=== PATIENT | female | born 1995 | race Caucasian/White ===

== ENCOUNTER 2018-07-09 15:59 | Emergency (ER) | payer SELFPAY ==
--- NOTE | 2018-07-09 17:17 | ER Document Report ---
ED Medical Screen (RME) - General Chief Complaint: Cough Stated Complaint: CONGESTED, HEADACHE, SIDE PAIN Time Seen by Provider: 07/09/18 17:15 Mode of Arrival: Ambulatory Information source: Patient TRAVEL OUTSIDE OF THE [place] IN LAST 30 DAYS: No - HPI Patient complains to provider of: cough, congestion, Onset: Last week - pt with 1 week h/o cough, congestion. Also redness around umbilicus for the past 2 days. - Related Data Allergies/Adverse Reactions: No Known Allergies Allergy (Unverified 07/09/18 16:07) Past Medical History - Social History Drug Abuse: None Renal/ Medical History: Denies: Hx Peritoneal Dialysis Physical Exam - Vital signs Vitals: Temp Pulse Resp BP Pulse Ox 98.4 F 78 16 127/80 H 98 07/09/18 16:17 07/09/18 16:17 07/09/18 16:17 07/09/18 16:17 07/09/18 16:17 Course - Vital Signs Vital signs: Temp Pulse Resp BP Pulse Ox 98.4 F 78 16 127/80 H 98 07/09/18 16:17 07/09/18 16:17 07/09/18 16:17 07/09/18 16:17 07/09/18 16:17
[2018-07-09 18:09] LABS: ABSOLUTE EOSINOPHILS # (AUTO) 0.1 10^3/uL (0.0-0.6); ABSOLUTE LYMPHOCYTES (AUTO) 1.3 10^3/uL (0.5-4.7); ABSOLUTE MONOCYTES (AUTO) 0.7 10^3/uL (0.1-1.4); ABSOLUTE NEUT (AUTO) 4.9 10^3/uL (1.7-8.2); BASOPHILS % (AUTO) 0.6 % (0-2); EOSINOPHILS % (AUTO) 1.1 % (0-6); HEMATOCRIT 42.9 % (36.0-47.0); HEMOGLOBIN 15.1 g/dL (12.0-15.5); LYMPHOCYTES % (AUTO) 18.8 % (13-45); MEAN CORPUSCULAR HEMOGLOBIN 30.6 pg (27.0-33.4); MEAN CORPUSCULAR HGB CONC 35.3 g/dL (32.0-36.0); MEAN CORPUSCULAR VOLUME 87 fl (80-97); MONOCYTES % (AUTO) 9.4 % (3-13); PLATELET COUNT 195 10^3/uL (150-450); RED BLOOD COUNT 4.95 10^6/uL (3.72-5.28); RED CELL DISTRIBUTION WIDTH 13.8 % (11.5-14.0); SEGMENTED NEUTROPHILS % (AUTO) 70.1 % (42-78); TOTAL CELLS COUNTED % (AUTO) 100 %
[2018-07-09 18:14] LABS: APPEARANCE,URINE SLIGHTLY-CLOUDY; BILIRUBIN,URINE NEGATIVE (NEGATIVE); COLOR,URINE YELLOW; GLUCOSE, URINE NEGATIVE (NEGATIVE); KETONES,URINE NEGATIVE (NEGATIVE); LEUKOCYTE ESTERASE,URINE NEGATIVE (NEGATIVE); NITRITE,URINE NEGATIVE (NEGATIVE); PROTEIN,URINE NEGATIVE (NEGATIVE); URINE SPECIFIC GRAVITY 1.019; UROBILINOGEN,URINE NEGATIVE mg/dL (<2.0)
[2018-07-09 18:27] LABS: ALANINE AMINOTRANSFERASE 28 U/L (9-52); ALBUMIN 4.6 g/dL (3.5-5.0); ALKALINE PHOSPHATASE 107 U/L (38-126); ANION GAP 12 (5-19); ASPARTATE AMINO TRANSFERASE 24 U/L (14-36); BILIRUBIN,DIRECT 0.1 mg/dL (0.0-0.4); BILIRUBIN,TOTAL 0.6 mg/dL (0.2-1.3); BLOOD UREA NITROGEN 9 mg/dL (7-20); CALCIUM 9.9 mg/dL (8.4-10.2); CARBON DIOXIDE 24 mmol/L (22-30); CHLORIDE 102 mmol/L (98-107); GLUCOSE 88 mg/dL (75-110); POTASSIUM 4.2 mmol/L (3.6-5.0); SODIUM 138.1 mmol/L (137-145); TOTAL PROTEIN 7.4 g/dL (6.3-8.2)
--- NOTE | 2018-07-09 18:39 | RADIOLOGY REPORT (SQ) ---
EXAM DESCRIPTION: CHEST 2 VIEWS COMPLETED DATE/TIME: 07/09/2018 5:40 pm REASON FOR STUDY: cough COMPARISON: None. EXAM PARAMETERS: NUMBER OF VIEWS: two views TECHNIQUE: Digital Frontal and Lateral radiographic views of the chest acquired. RADIATION DOSE: NA LIMITATIONS: none FINDINGS: LUNGS AND PLEURA: No acute infiltrates or effusions. MEDIASTINUM AND HILAR STRUCTURES: No masses or contour abnormalities. HEART AND VASCULAR STRUCTURES: Normal heart and pulmonary vasculature. BONES: No acute findings. HARDWARE: None in the chest. OTHER: No other significant finding. IMPRESSION: NO ACUTE DISEASE. TECHNICAL DOCUMENTATION: JOB ID: [id number] [employer]- All Rights Reserved Reading location - IP/workstation name: [email or web address]
--- NOTE | 2018-07-09 19:31 | ER Document Report ---
ED General - General Chief Complaint: Cough Stated Complaint: CONGESTED, HEADACHE, SIDE PAIN Time Seen by Provider: 07/09/18 17:15 Mode of Arrival: Ambulatory Notes: Patient is a 23-year-old female without chronic medical problems who presents with 2-3 days of sinus congestion, ear pain, cough, postnasal drip. Patient also reports that she has had erythema around her umbilicus for the past 1 week. Primary reason for visiting is the URI type symptoms. Patient states that the symptoms started abruptly, have been relatively unchanged since onset. Has tried xmue-niu-gvjditf remedies without relief. Nothing seems to worsen her symptoms. States that she gets these symptoms 3-4 times yearly, often diagnosis viral infections and she is worried that this will turn into a pneumonia. She has not had fever. She denies vomiting or diarrhea. No headache or neck pain. Has not seen her primary care physician regarding today's concerns. TRAVEL OUTSIDE OF THE [place] IN LAST 30 DAYS: No - Related Data Allergies/Adverse Reactions: No Known Allergies Allergy (Unverified 07/09/18 16:07) Past Medical History - General Information source: Patient - Social History Smoking Status: Never Smoker Frequency of alcohol use: None Drug Abuse: None Lives with: Family Family History: Reviewed & Not Pertinent Patient has suicidal ideation: No Patient has homicidal ideation: No Renal/ Medical History: Denies: Hx Peritoneal Dialysis Review of Systems - Review of Systems Notes: Constitutional: Negative for fever. HENT: Positive for sore throat, sinus pressure, ear pain. Eyes: Negative for visual changes. Cardiovascular: Negative for chest pain. Respiratory: Negative for shortness of breath. Positive for cough Gastrointestinal: Negative for abdominal pain, vomiting or diarrhea. Genitourinary: Negative for dysuria. Musculoskeletal: Negative for back pain. Skin: Positive for rash. Neurological: Negative for headaches, weakness or numbness. 10 point ROS negative except as marked above and in HPI. Physical Exam - Vital signs Vitals: Temp Pulse Resp BP Pulse Ox 98.4 F 78 16 127/80 H 98 07/09/18 16:17 07/09/18 16:17 07/09/18 16:17 07/09/18 16:17 07/09/18 16:17 Interpretation: Normal Notes: PHYSICAL EXAMINATION: GENERAL: Well-appearing, well-nourished and in no acute distress. HEAD: Atraumatic, normocephalic. EYES: Pupils equal round and reactive to light, extraocular movements intact, sclera anicteric, conjunctiva are normal. ENT: nares patent, oropharynx clear without exudates. Moist mucous membranes. NECK: Normal range of motion, supple without lymphadenopathy LUNGS: Breath sounds clear to auscultation bilaterally and equal. No wheezes rales or rhonchi. HEART: Regular rate and rhythm without murmurs ABDOMEN: Soft, nontender, normoactive bowel sounds. No guarding, no rebound. No masses appreciated. EXTREMITIES: Normal range of motion, no pitting or edema. No cyanosis. NEUROLOGICAL: No focal neurological deficits. Moves all extremities spontaneously and on command. PSYCH: Normal mood, normal affect. SKIN: Warm, Dry, normal turgor, there is diffuse erythema around the umbilicus and into the umbilicus itself Course - Re-evaluation Re-evalutation: 07/09/18 19:29 Presentation is most consistent with a viral upper respiratory infection. Patient is overall well appearance, vitals within normal limits, well-hydrated. Patient denies any headache, neck pain, and has no evidence of meningismus on examination. Lungs are clear bilaterally. No evidence of respiratory distress. Based on clinical exam and history, I do not suspect an acute pneumonia, meningitis, strep pharyngitis, or an acute encephalitis. In triage an extensive evaluation was done including laboratories and chest x-ray all of which is unremarkable. The patient did also complain of some erythema around the umbilicus, this appears to be a candidal infection and I have advised her to start nystatin. At this time will discharge with return precautions and follow- up recommendations. Verbal discharge instructions given a the bedside and opportunity for questions given. Medication warnings reviewed. Patient is in agreement with this plan and has verbalized understanding of return precautions and the need for primary care follow-up in the next 24-72 hours. - Vital Signs Vital signs: Temp Pulse Resp BP Pulse Ox 98.1 F 70 16 128/70 H 95 07/09/18 19:41 07/09/18 19:41 07/09/18 19:41 07/09/18 19:41 07/09/18 19:41 - Laboratory Result Diagrams: 07/09/18 17:56 07/09/18 17:56 - Diagnostic Test Radiology reviewed: Image reviewed, Reports reviewed Radiology results interpreted by me: 07/10/18 02:37 Chest x-ray: No acute infiltrate or pneumothorax Discharge - Discharge Clinical Impression: Viral upper respiratory infection, Cellulitis of umbilicus Condition: Good Disposition: HOME, SELF-CARE Additional Instructions: Your symptoms are most likely due to a viral infection it should resolve over the next 7-14 days. You should take zhku-obe-pdttant guanfacine per bottle instructions to help thin the mucus. For nasal congestion: I would recommend memo t you get sjfo-ydt-vftcntg oxymetazoline also known is afrin. Use only per bottle instructions and be sure to never use this for more than 3 days if you can develop severe rebound congestion. You may also use tylenol or ibuprofen as needed for aches and throat discomfort. Please be sure to drink plenty of fluids and get rest. Return to the emergency department he began having difficulty breathing, chest pain, persistent vomiting, or any other symptoms that are concerning to you. Apply nystatin powder to the umbilical region 3 times daily until the rash is resolved. Prescriptions: Nystatin 1 each MC TID 14 Days powder.ea. Forms: Return to Work
[2018-07-09 19:54] VITALS: BP 128/70
== END 2018-07-09 19:58 | disposition home or self-care (01) ==
LOC: ER 15:59
DX: J06.9 Acute upper respiratory infection, unspecified (principal); B97.89 Other viral agents as the cause of diseases classified elsewhere; L03.316 Cellulitis of umbilicus; R05 Cough; R09.81 Nasal congestion; R51 Headache; H92.09 Otalgia, unspecified ear; R09.82 Postnasal drip; R21 Rash and other nonspecific skin eruption
CPT/HCPCS: 36415; 71046; 80053; 81001; 81025; 85025; 99283

== ENCOUNTER 2018-07-12 17:31 | Emergency (ER) | payer SELFPAY ==
[2018-07-12] MEDS ORDERED: IPRATROPIUM/ALBUTEROL 0.5-2.5 MG/3 ML AMPUL NEB ONE (19:09)
[2018-07-12] MEDS ORDERED: ONDANSETRON 4 MG TAB.RAPDIS PO ONE (19:11)
--- NOTE | 2018-07-12 19:16 | ER Document Report ---
HPI - HPI Patient complains to provider of: cough, nausea Time Seen by Provider: 07/12/18 18:49 Onset: Other - last tuesday Quality of pain: Achy Severity: Severe Pain Level: 4 Context: Patient presents emergency department very tearful crying reports that she feels awful coughing coughing to the point where she is vomiting after the cough. Reports she has pain with deep breath. Patient was evaluated here a few days ago for same symptoms and reports she is worsening. Has been taking the Tessalon Perles without relief of symptoms. Denies diarrhea. Feels hot and cold. Patient reports that she has had bronchitis for times and pneumonia 3 times. Moved here from [place] couple months ago. No recent travel. Associated Symptoms: Nonproductive cough Exacerbated by: Deep breathing Relieved by: Denies Similar symptoms previously: Yes Recently seen / treated by doctor: Yes - CONSTITUTIONAL Constitutional: REPORTS: Chills. DENIES: Fever - EENT EENT: REPORTS: Sore Throat. DENIES: Ear Pain, Eye problems - NEURO Neurology: DENIES: Headache, Weakness, Vision blurred, Dizzinesss / Vertigo - CARDIOVASCULAR Cardiovascular: DENIES: Chest pain - RESPIRATORY Respiratory: REPORTS: Trouble Breathing, Coughing - GASTROINTESTINAL Gastrointestinal: DENIES: Abdominal Pain, Black / Bloody Stools - URINARY Urinary: DENIES: Dysuria, Urgency, Frequency - REPRODUCTIVE Reproductive: DENIES: : - MUSCULOSKELETAL Musculoskeletal: DENIES: Extremity pain Past Medical History - General Information source: Patient Last Menstrual Period: jan 2018 - Social History Smoking Status: Unknown if Ever Smoked Cigarette use (# per day): No Chew tobacco use (# tins/day): No Frequency of alcohol use: Occasional Drug Abuse: None Occupation: [employer] Family History: Reviewed & Not Pertinent Patient has suicidal ideation: No Patient has homicidal ideation: No Pulmonary Medical History: Reports: Hx Bronchitis, Hx Pneumonia Renal/ Medical History: Denies: Hx Peritoneal Dialysis Past Surgical History: Reports: Hx Orthopedic Surgery - acl reconstruction Vertical Provider Document - CONSTITUTIONAL Agree With Documented VS: Yes Exam Limitations: No Limitations General Appearance: WD/WN, No Apparent Distress - very emotional crying - INFECTION CONTROL TRAVEL OUTSIDE OF THE [place] IN LAST 30 DAYS: No - HEENT HEENT: Atraumatic, Normocephalic, Pharyngeal Erythema. negative: Conjuctival Injection, Pharyngeal Exudate, Pharyngeal Tenderness, Tympanic Membrane Red, Tympanic Membrane Bulging - NECK Neck: Normal Inspection - RESPIRATORY Respiratory: Breath Sounds Normal, No Respiratory Distress, Chest Non-Tender. negative: Rales, Rhonchi, Wheezing - CARDIOVASCULAR Cardiovascular: Regular Rhythm, Tachycardia - GI/ABDOMEN Gastrointestinal: Abdomen Soft, Abdomen Non-Tender - BACK Back: Normal Inspection - MUSCULOSKELETAL/EXTREMETIES Musculoskeletal/Extremeties: MAEW, FROM - NEURO Level of Consciousness: Awake, Alert, Appropriate Motor/Sensory: No Motor Deficit - DERM Integumentary: Warm, Dry Course - Re-evaluation Re-evalutation: 07/12/18 19:13 Patient is very dramatic. Crying very emotional wanting to know why she is so sick. Reviewed medical record from Tuesday. Lab work was negative chest x-ray is negative. CT Chest neb treatment ordered 07/12/18 20:34 CT negative vital signs within normal limits. Patient resting quietly no distress no audible coughing. She was instructed on the CT instructed on the importance of follow-up with a primary care provider we discussed bronchitis we discussed cough. Patient seemed comfortable with plan of care. Dictation of this chart was performed using voice recognition software; therefore, there may be some unintended grammatical errors. - Vital Signs Vital signs: Temp Pulse Resp BP Pulse Ox 99.8 F 106 H 20 82/67 L 99 07/12/18 19:01 07/12/18 19:01 07/12/18 19:01 07/12/18 19:01 07/12/18 19:01 - Diagnostic Test Radiology reviewed: Image reviewed, Reports reviewed - EXAM DESCRIPTION: CT CHEST WITHOUT IV CONTRAST COMPLETED DATE/TME: 07/12/2018 19:03 CLINICAL HISTORY: 23 years, Female, cough worsening, difficulty breathing. This exam was performed according to our departmental dose-optimization program which i ncludes automated exposure control, adjustment of the mA and/or kVp according to patient size and/or use of iterative reconstruction technique where applicable. Findings: Aorta and pulmonary arteries are within normal limits for noncontrast imaging. No aneurysm. No significant mediastinal, hilar or axillary lymphadenopathy. Small pericardial effusion. No significant pleural effusions. The visualized upper abdominal organs are within normal limits. Evaluation of the lung parenchyma demonstrates trachea and major airways to be patent. No suspicious lung nodules or masses. No consolidations to suggest pneumonia. IMPRESSION: No acute disease. Dictated by: PAUL MULLINS MD 10 CC: RIMA BLOOM NP > Discharge - Discharge Clinical Impression: Cough, Nausea Condition: Stable Disposition: HOME, SELF-CARE Instructions: Antinausea Medication ([facility]) Additional Instructions: *You have been evaluated for a cough, bronchitis *Take medication as prescribed *Increase fluids *Monitor your temperature, take Tylenol as indicated *Follow up with a primary care provider within 5 days *Return to ED for increasing fever, cough, worsening condition, changes, needs, difficulty breathing, concerns Prescriptions: Guaifenesin/Dextromethorphan [Robitussin Cough-Chest Dm Liq] 10 ml PO Q4H #1 bottle Forms: Return to Work
[2018-07-12 20:09] VITALS: BP 127/73
--- NOTE | 2018-07-12 20:13 | RADIOLOGY REPORT (SQ) ---
EXAM DESCRIPTION: CT CHEST WITHOUT IV CONTRAST COMPLETED DATE/TME: 07/12/2018 19:03 CLINICAL HISTORY: 23 years, Female, cough worsening, difficulty breathing. This exam was performed according to our departmental dose-optimization program which includes automated exposure control, adjustment of the mA and/or kVp according to patient size and/or use of iterative reconstruction technique where applicable. Findings: Aorta and pulmonary arteries are within normal limits for noncontrast imaging. No aneurysm. No significant mediastinal, hilar or axillary lymphadenopathy. Small pericardial effusion. No significant pleural effusions. The visualized upper abdominal organs are within normal limits. Evaluation of the lung parenchyma demonstrates trachea and major airways to be patent. No suspicious lung nodules or masses. No consolidations to suggest pneumonia. IMPRESSION: No acute disease.
[2018-07-12] MEDS ORDERED: ONDANSETRON ODT 4 MG TAB (6 TAB/ER DISP) PO PRN (20:27)
== END 2018-07-12 20:42 | disposition home or self-care (01) ==
LOC: ER 17:31
DX: R05 Cough (principal); R11.2 Nausea with vomiting, unspecified; R07.1 Chest pain on breathing; R68.83 Chills (without fever); J02.9 Acute pharyngitis, unspecified; Z87.01 Personal history of pneumonia (recurrent)
CPT/HCPCS: 94640; 99283; 71250; S0119; J7620

== ENCOUNTER 2018-09-12 01:36 | Emergency (ER) | payer SELFPAY ==
[2018-09-12] MEDS ORDERED: METOCLOPRAMIDE HCL 10 MG TABLET PO ONE (02:16)
[2018-09-12] MEDS ORDERED: NORMAL SALINE 1000 ML 1,000 ML IV ONE (02:16)
--- NOTE | 2018-09-12 02:19 | ER Document Report ---
ED Medical Screen (RME) - General Chief Complaint: Headache Stated Complaint: HEADACHE Time Seen by Provider: 09/12/18 02:15 Notes: 23-year-old female with chief complaint of headache and abdominal pain. She states her "entire head hurts" and her upper abdomen hurts. She states she vomited twice. She states her abdomen started hurting before she started vomiting. She denies head injury or fever. She denies any daily medications. TRAVEL OUTSIDE OF THE [place] IN LAST 30 DAYS: No - Related Data Allergies/Adverse Reactions: No Known Allergies Allergy (Verified 07/12/18 17:37) Past Medical History Pulmonary Medical History: Reports: Hx Bronchitis, Hx Pneumonia Renal/ Medical History: Denies: Hx Peritoneal Dialysis Past Surgical History: Reports: Hx Orthopedic Surgery - acl reconstruction Physical Exam - Vital signs Vitals: Temp Pulse Resp BP Pulse Ox 98.0 F 80 20 147/78 H 97 09/12/18 01:47 09/12/18 01:47 09/12/18 01:47 09/12/18 01:47 09/12/18 01:47 - General General appearance: Alert, Other - Holding her head in a towel, has to be requested to take her head out of the towel and talk to me. Does not appear to be in distress - Abdominal Tenderness: Tender - Mild upper abdominal tenderness Course - Re-evaluation Re-evalutation: I have greeted and performed a rapid initial assessment of this patient. A comprehensive ED assessment and evaluation of the patient, analysis of test results and completion of the medical decision making process will be conducted by additional ED providers. - Vital Signs Vital signs: Temp Pulse Resp BP Pulse Ox 98.0 F 80 20 147/78 H 97 09/12/18 01:47 09/12/18 01:47 09/12/18 01:47 09/12/18 01:47 09/12/18 01:47
[2018-09-12 03:01] LABS: ABSOLUTE EOSINOPHILS # (AUTO) 0.1 10^3/uL (0.0-0.6); ABSOLUTE LYMPHOCYTES (AUTO) 2.3 10^3/uL (0.5-4.7); ABSOLUTE MONOCYTES (AUTO) 0.5 10^3/uL (0.1-1.4); ABSOLUTE NEUT (AUTO) 9.2 10^3/uL (1.7-8.2); BASOPHILS % (AUTO) 0.3 % (0-2); EOSINOPHILS % (AUTO) 1.1 % (0-6); HEMATOCRIT 40.7 % (36.0-47.0); HEMOGLOBIN 14.2 g/dL (12.0-15.5); LYMPHOCYTES % (AUTO) 18.7 % (13-45); MEAN CORPUSCULAR HEMOGLOBIN 29.9 pg (27.0-33.4); MEAN CORPUSCULAR HGB CONC 34.8 g/dL (32.0-36.0); MEAN CORPUSCULAR VOLUME 86 fl (80-97); MONOCYTES % (AUTO) 4.3 % (3-13); PLATELET COUNT 249 10^3/uL (150-450); RED BLOOD COUNT 4.73 10^6/uL (3.72-5.28); RED CELL DISTRIBUTION WIDTH 13.7 % (11.5-14.0); SEGMENTED NEUTROPHILS % (AUTO) 75.6 % (42-78); TOTAL CELLS COUNTED % (AUTO) 100 %; WHITE BLOOD COUNT 12.2 10^3/uL (4.0-10.5)
[2018-09-12 03:18] LABS: ALANINE AMINOTRANSFERASE 23 U/L (9-52); ALBUMIN 4.2 g/dL (3.5-5.0); ALKALINE PHOSPHATASE 82 U/L (38-126); ANION GAP 11 (5-19); ASPARTATE AMINO TRANSFERASE 25 U/L (14-36); BILIRUBIN,DIRECT 0.3 mg/dL (0.0-0.4); BILIRUBIN,TOTAL 0.5 mg/dL (0.2-1.3); BLOOD UREA NITROGEN 11 mg/dL (7-20); CALCIUM 9.9 mg/dL (8.4-10.2); CARBON DIOXIDE 24 mmol/L (22-30); CHLORIDE 107 mmol/L (98-107); GLUCOSE 100 mg/dL (75-110); LIPASE 140.9 U/L (23-300); POTASSIUM 4.4 mmol/L (3.6-5.0); SODIUM 141.8 mmol/L (137-145); TOTAL PROTEIN 7.1 g/dL (6.3-8.2)
[2018-09-12 03:52] LABS: APPEARANCE,URINE CLEAR; BILIRUBIN,URINE NEGATIVE (NEGATIVE); COLOR,URINE YELLOW; GLUCOSE, URINE NEGATIVE (NEGATIVE); KETONES,URINE NEGATIVE (NEGATIVE); LEUKOCYTE ESTERASE,URINE NEGATIVE (NEGATIVE); NITRITE,URINE NEGATIVE (NEGATIVE); PROTEIN,URINE NEGATIVE (NEGATIVE); URINE SPECIFIC GRAVITY 1.016; UROBILINOGEN,URINE NEGATIVE mg/dL (<2.0)
--- NOTE | 2018-09-12 04:30 | ER Document Report ---
ED General - General Chief Complaint: Headache Stated Complaint: HEADACHE Time Seen by Provider: 09/12/18 02:15 Notes: Patient is a 23-year-old female with chief complaint of headache and abdominal pain. She states her "entire head hurts" and her upper abdomen hurts. She states she vomited twice. Headache started while she was driving, she characterizes it as a throbbing headache. Headache was not maximal at onset. She states her abdomen started hurting before she started vomiting. She denies head injury or fever. She denies any daily medications. She denies . TRAVEL OUTSIDE OF THE [place] IN LAST 30 DAYS: No - Related Data Allergies/Adverse Reactions: No Known Allergies Allergy (Verified 07/12/18 17:37) Past Medical History - General Information source: Patient - Social History Smoking Status: Never Smoker Frequency of alcohol use: None Drug Abuse: None Lives with: Family Family History: Reviewed & Not Pertinent Patient has suicidal ideation: No Patient has homicidal ideation: No Pulmonary Medical History: Reports: Hx Bronchitis, Hx Pneumonia Renal/ Medical History: Denies: Hx Peritoneal Dialysis Past Surgical History: Reports: Hx Orthopedic Surgery - acl reconstruction - Immunizations Immunizations up to date: Yes Hx Diphtheria, Pertussis, Tetanus Vaccination: Yes Review of Systems - Review of Systems Constitutional: No symptoms reported EENT: No symptoms reported Cardiovascular: No symptoms reported Respiratory: No symptoms reported Gastrointestinal: See HPI Genitourinary: No symptoms reported Female Genitourinary: No symptoms reported Musculoskeletal: No symptoms reported Skin: No symptoms reported Hematologic/Lymphatic: No symptoms reported Neurological/Psychological: See HPI Physical Exam - Vital signs Vitals: Temp Pulse Resp BP Pulse Ox 98.0 F 80 20 147/78 H 97 09/12/18 01:47 09/12/18 01:47 09/12/18 01:47 09/12/18 01:47 09/12/18 01:47 - Notes Notes: GENERAL: Sleeping soundly, arousable HEAD: Normocephalic, atraumatic. EYES: Pupils equal, round, and reactive to light. Extraocular movements intact. ENT: Oral mucosa moist, tongue midline. Oropharynx unremarkable. Airway patent. NECK: Full range of motion. Supple. Trachea midline. LUNGS: Clear to auscultation bilaterally, no wheezes, rales, or rhonchi. No respiratory distress. HEART: Regular rate and rhythm. No murmur ABDOMEN: Soft, non-tender. Non-distended. Bowel sounds present in all 4 quadrants. GENITOURINARY: Deferred EXTREMITIES: Moves all 4 extremities spontaneously. No edema, normal radial and dorsalis pedis pulses bilaterally. No cyanosis. BACK: no cervical, thoracic, lumbar midline tenderness. No saddle anesthesia, normal distal neurovascular exam. NEUROLOGICAL: Alert and oriented x3. Normal speech. Cranial nerves II through XII grossly intact. PSYCH: Normal affect, normal mood. Pleasant, smiling, well-appearing SKIN: Warm, dry, normal turgor. No rashes or lesions noted. Course - Re-evaluation Re-evalutation: Mild leukocytosis on CBC, nonspecific given vomiting. Chemistry unremarkable. Urinalysis unremarkable. test is negative. I saw patient in triage, she looked well but was complaining of headache and did vomit recently. On reevaluation patient had received Reglan and IV fluids. Patient is sleeping soundly. I awakened her and she states she feels great. Her headache is resolved, her abdomen is nontender. Abdominal exam is completely benign. Vital signs unremarkable. Patient with no current co mplaints. Patient states she has had headaches in the past, she states she thinks she got dehydrated and this triggered her migraine. Either way based on her normal neurological exam, benign appearance, and complete resolution of symptoms I have a low suspicion of any concerning intracranial or neurological abnormality. Patient was prescribed Reglan after discussion, discussed follow- up and return precautions. Patient states understanding and agreement. - Vital Signs Vital signs: Temp Pulse Resp BP Pulse Ox 98.7 F 65 16 118/52 L 100 09/12/18 05:01 09/12/18 05:01 09/12/18 05:01 09/12/18 05:01 09/12/18 05:01 - Laboratory Result Diagrams: 09/12/18 02:44 09/12/18 02:44 Laboratory results interpreted by me: 09/12/18 02:44 WBC 12.2 H Absolute Neutrophils 9.2 H Discharge - Discharge Clinical Impression: Headache Qualifiers: Headache type: unspecified Headache chronicity pattern: acute headache Intractability: not intractable Qualified Code(s): R51 - Headache Vomiting Qualifiers: Vomiting type: unspecified Vomiting Intractability: non-intractable Nausea presence: with nausea Qualified Code(s): R11.2 - Nausea with vomiting, unspecified Condition: Good Disposition: HOME, SELF-CARE Additional Instructions: Your evaluation, symptoms, and resolution with treatment are very suggestive of a migraine. You can take the prescribed medication if needed for headaches in the future. This can be combined with tutw-grv-fopfenv diphenhydramine, Tylenol, or ibuprofen. Follow-up with primary care for additional evaluation and management of migraines. Return if you worsen including returned or severe headache, vomiting, fever, or any other concerning or worsening symptoms. Prescriptions: Metoclopramide HCl [Reglan] 5 mg PO ASDIR PRN #30 tablet PRN Reason:
[2018-09-12 05:02] VITALS: BP 118/52
== END 2018-09-12 05:15 | disposition home or self-care (01) ==
LOC: ER 01:36
DX: R51 Headache (principal); R11.2 Nausea with vomiting, unspecified; R10.9 Unspecified abdominal pain
CPT/HCPCS: 99284; 96360; 36415; 83690; 85025; 81025; 80053; 81001; J7030

== ENCOUNTER 2018-12-10 18:28 | Emergency (ER) | payer SELFPAY ==
[2018-12-10] MEDS ORDERED: LIDOCAINE 1%/EPINEPHRINE INJ 20 ML VIAL INJ ONE (22:36)
[2018-12-10] MEDS ORDERED: CEPHALEXIN 500 MG CAPSULE PO ONE (22:36)
--- NOTE | 2018-12-10 23:00 | ER Document Report ---
ED Skin Rash/Insect Bite/Abscs - General Chief Complaint: Abscess Stated Complaint: BUMP ON THIGH Time Seen by Provider: 12/10/18 21:23 Notes: Healthy 23-year-old female presents the emergency department chief complaint of a small abscess on her proximal right medial thigh that started 1 month ago but got progressively worse over the last 1 week. She attempted to pop it today but was unsuccessful. She denies any surrounding redness or warmth at the site. No history of MRSA. Patient also has a rash on her bilateral gluteus muscles and her posterior proximal legs that is blanchable and she states will often turn into little whiteheads that she pops. No fevers or chills, no nausea or vomiting, no headache or photophobia, no neck stiffness, no other complaints. TRAVEL OUTSIDE OF THE [place] IN LAST 30 DAYS: No - Related Data Allergies/Adverse Reactions: No Known Allergies Allergy (Verified 07/12/18 17:37) Past Medical History - Social History Smoking Status: Current Every Day Smoker Chew tobacco use (# tins/day): No Frequency of alcohol use: Social Drug Abuse: Marijuana Family History: Reviewed & Not Pertinent Patient has suicidal ideation: No Patient has homicidal ideation: No Pulmonary Medical History: Reports: Hx Bronchitis, Hx Pneumonia Renal/ Medical History: Denies: Hx Peritoneal Dialysis Past Surgical History: Reports: Hx Orthopedic Surgery - acl reconstruction - Immunizations Immunizations up to date: Yes Hx Diphtheria, Pertussis, Tetanus Vaccination: Yes Review of Systems - Review of Systems Constitutional: See HPI EENT: No symptoms reported Cardiovascular: No symptoms reported Respiratory: No symptoms reported Gastrointestinal: See HPI Genitourinary: See HPI Female Genitourinary: No symptoms reported Musculoskeletal: No symptoms reported Skin: See HPI Hematologic/Lymphatic: No symptoms reported Neurological/Psychological: No symptoms reported Physical Exam - Vital signs Vitals: Temp Pulse Resp BP Pulse Ox 98.5 F 79 18 128/75 H 94 12/10/18 18:41 12/10/18 18:41 12/10/18 18:41 12/10/18 18:41 12/10/18 18:41 - Notes Notes: PHYSICAL EXAMINATION: Reviewed vital signs and charting by RN GENERAL: Alert, interacts well. No acute distress. HEAD: Normocephalic, atraumatic. EYES: Pupils equal and round. Extraocular movements intact. ENT: Oral mucosa moist, tongue midline. EXTREMITIES: Moves all 4 extremities spontaneously. No edema, No cyanosis. PSYCH: Normal affect, normal mood. SKIN: Warm, dry, normal turgor. No rashes or lesions noted. Abscess over the anterior lateral proximal right thigh with no surrounding erythema and an area of fluctuance palpated, diffuse maculopapular rash on patient's bilateral buttocks and proximal posterior thighs that is blanchable Course - Re-evaluation Re-evalutation: 12/10/18 23:13 Overall well-appearing and nontoxic. A simple abscess was incised and drained and there was no purulent discharge expressed. Patient was started on Keflex as there was a surrounding erythema consistent with cellulitis. Patient tolerated procedure well. Patient's rash on her posterior side does not appear to be fungal and potentially could be a folliculitis but we will place her on Keflex and I gave her information for the [facility] for follow-up. She is stable for discharge. 12/10/18 23:14 - Vital Signs Vital signs: Temp Pulse Resp BP Pulse Ox 98.5 F 79 18 128/75 H 94 12/10/18 18:41 12/10/18 18:41 12/10/18 18:41 12/10/18 18:41 12/10/18 18:41 Procedures - Incision and Drainage Right Medial Thigh Type: Simple Anesthetic type: 1% Lidocaine Blade size: 11 I&D procedure: Chlorprep applied Incision Method: Incision made by scalpel Discharge - Discharge Clinical Impression: Abscess, Rash and nonspecific skin eruption Condition: Good Disposition: HOME, SELF-CARE Additional Instructions: You were seen for an abscess that required drainage. Please clean this area with soap and water twice daily and apply a topical antibiotic. Dress the area after each cleaning. Please return if you develop fever, vomiting, the pain at the site worsens, you notice spreading redness from the area, or you have any other symptoms that are concerning to you. Also, you are being treated for a rash on your backside. We are giving a medication called Keflex which you should take 4 times a day for 7 days. If you develop severe shortness of breath, he developed hives which are large welts, you develop nausea and vomiting this is signs of anaphylaxis and to immediately stop taking the medication and seek emergency care. Also, we have given you information for the [facility] and you can establish primary care with them.
[2018-12-10 23:26] VITALS: BP 132/75
== END 2018-12-10 23:26 | disposition home or self-care (01) ==
LOC: ER 18:28
DX: L02.415 Cutaneous abscess of right lower limb (principal); R21 Rash and other nonspecific skin eruption; F17.200 Nicotine dependence, unspecified, uncomplicated; F12.10 Cannabis abuse, uncomplicated
CPT/HCPCS: 99283; J3490

== ENCOUNTER 2019-02-05 15:23 | Emergency (ER) | payer SELFPAY ==
[2019-02-05] MEDS ORDERED: DEXAMETHASONE SOD PHOS INJ 10 MG/1 ML VIAL IM ONE (15:34)
[2019-02-05] MEDS ORDERED: KETOROLAC TROMETHAMINE 60 MG/2 ML SDV IM ONE (15:34)
--- NOTE | 2019-02-05 15:37 | ER Document Report ---
ED Medical Screen (RME) - General Chief Complaint: Shortness Of Breath Stated Complaint: SHORTNESS OF BREATH Time Seen by Provider: 02/05/19 15:34 Mode of Arrival: Ambulatory Information source: Patient Notes: 23-year-old female presented to ED for complaint of cough congestion x2 days and a sore throat starting this morning. States is been getting progressively worse all day until now it is difficult to swallow or talk. She states it is making it hard to breathe. She does still have an open where her airway and lungs are clear to auscultation. She states she does have a history of bronchitis and pneumonia torn ACL with knee surgery. She states she does not smoke occasionally drinks and does not use drugs. She works at the [employer] and lives with her family. Patient is alert oriented respirations regular and unlabored speaking in full sentences. I have treated her with Toradol and Decadron IM and lab works have been sent to include CBC chemistry CRP sed rate strep and mono. I have greeted and performed a rapid initial assessment of this patient. A comprehensive ED assessment and evaluation of the patient, analysis of test results and completion of medical decision making process will be conducted by an additional ED providers. TRAVEL OUTSIDE OF THE [place] IN LAST 30 DAYS: No - Related Data Allergies/Adverse Reactions: No Known Allergies Allergy (Verified 02/05/19 15:33) Past Medical History Pulmonary Medical History: Reports: Hx Bronchitis, Hx Pneumonia Renal/ Medical History: Denies: Hx Peritoneal Dialysis Past Surgical History: Reports: Hx Orthopedic Surgery - acl reconstruction - Immunizations Immunizations up to date: Yes Hx Diphtheria, Pertussis, Tetanus Vaccination: Yes Physical Exam - Vital signs Vitals: Temp Pulse Resp BP Pulse Ox 99.0 F 116 H 20 122/71 100 02/05/19 15:26 02/05/19 15:26 02/05/19 15:26 02/05/19 15:26 02/05/19 15:26 Course - Vital Signs Vital signs: Temp Pulse Resp BP Pulse Ox 99.0 F 116 H 20 122/71 100 02/05/19 15:26 02/05/19 15:26 02/05/19 15:26 02/05/19 15:26 02/05/19 15:26
[2019-02-05 16:30] LABS: ABSOLUTE EOSINOPHILS # (AUTO) 0.2 10^3/uL (0.0-0.6); ABSOLUTE LYMPHOCYTES (AUTO) 2.4 10^3/uL (0.5-4.7); ABSOLUTE MONOCYTES (AUTO) 0.9 10^3/uL (0.1-1.4); ABSOLUTE NEUT (AUTO) 8.1 10^3/uL (1.7-8.2); BASOPHILS % (AUTO) 0.4 % (0-2); EOSINOPHILS % (AUTO) 1.4 % (0-6); HEMATOCRIT 40.1 % (36.0-47.0); HEMOGLOBIN 13.6 g/dL (12.0-15.5); LYMPHOCYTES % (AUTO) 20.7 % (13-45); MEAN CORPUSCULAR HEMOGLOBIN 29.1 pg (27.0-33.4); MEAN CORPUSCULAR HGB CONC 33.9 g/dL (32.0-36.0); MEAN CORPUSCULAR VOLUME 86 fl (80-97); MONOCYTES % (AUTO) 7.9 % (3-13); PLATELET COUNT 175 10^3/uL (150-450); RED BLOOD COUNT 4.68 10^6/uL (3.72-5.28); RED CELL DISTRIBUTION WIDTH 12.8 % (11.5-14.0); SEGMENTED NEUTROPHILS % (AUTO) 69.6 % (42-78); TOTAL CELLS COUNTED % (AUTO) 100 %; WHITE BLOOD COUNT 11.7 10^3/uL (4.0-10.5)
[2019-02-05 17:01] LABS: ALBUMIN 3.9 g/dL (3.5-5.0); ALKALINE PHOSPHATASE 97 U/L (38-126); ANION GAP 8 (5-19); ASPARTATE AMINO TRANSFERASE 31 U/L (14-36); BILIRUBIN,DIRECT 0.1 mg/dL (0.0-0.4); BILIRUBIN,TOTAL 0.6 mg/dL (0.2-1.3); BLOOD UREA NITROGEN 11 mg/dL (7-20); C-REACTIVE PROTEIN 43.3 mg/L (<10.0); CALCIUM 9.3 mg/dL (8.4-10.2); CARBON DIOXIDE 26 mmol/L (22-30); CHLORIDE 105 mmol/L (98-107); GLUCOSE 97 mg/dL (75-110); POTASSIUM 4.3 mmol/L (3.6-5.0); TOTAL PROTEIN 6.7 g/dL (6.3-8.2)
[2019-02-05 17:05] LABS: ERYTHROCYTE SEDIMENTATION RATE 13 mm/hr (0-20)
--- NOTE | 2019-02-05 21:50 | ER Document Report ---
ED General - General Chief Complaint: Shortness Of Breath Stated Complaint: SHORTNESS OF BREATH Time Seen by Provider: 02/05/19 15:34 Mode of Arrival: Ambulatory Notes: Patient is a 23-year-old female that comes emergency department for chief complaint of 2 and half days of sore throat, congestion, chills, and she also feels like it is difficult to swallow or talk. She was treated with dexamethasone and Toradol in the triage area and she states that she actually feels much better, swelling feels like it is gone down in her throat. She works in a [employer]. She denies any diagnosed medical problems or daily medications. She denies smoking. TRAVEL OUTSIDE OF THE [place] IN LAST 30 DAYS: No - Related Data Allergies/Adverse Reactions: No Known Allergies Allergy (Verified 02/05/19 15:33) Past Medical History - General Information source: Patient - Social History Smoking Status: Never Smoker Frequency of alcohol use: Social Drug Abuse: None Lives with: Family Family History: Reviewed & Not Pertinent Patient has suicidal ideation: No Patient has homicidal ideation: No Pulmonary Medical History: Reports: Hx Bronchitis, Hx Pneumonia Renal/ Medical History: Denies: Hx Peritoneal Dialysis Past Surgical History: Reports: Hx Orthopedic Surgery - acl reconstruction - Immunizations Immunizations up to date: Yes Hx Diphtheria, Pertussis, Tetanus Vaccination: Yes Review of Systems - Review of Systems Constitutional: No symptoms reported EENT: See HPI Cardiovascular: No symptoms reported Respiratory: No symptoms reported Gastrointestinal: No symptoms reported Genitourinary: No symptoms reported Female Genitourinary: No symptoms reported Musculoskeletal: No symptoms reported Skin: No symptoms reported Hematologic/Lymphatic: No symptoms reported Neurological/Psychological: No symptoms reported Physical Exam - Vital signs Vitals: Temp Pulse Resp BP Pulse Ox 99.0 F 116 H 20 122/71 100 02/05/19 15:26 02/05/19 15:26 02/05/19 15:26 02/05/19 15:26 02/05/19 15:26 - Notes Notes: GENERAL: Alert, interacts well. No acute distress. HEAD: Normocephalic, atraumatic. EYES: Pupils equal, round, and reactive to light. Extraocular movements intact. ENT: Oral mucosa moist, tongue midline. Tonsils are very enlarged but not kissing, uvula normal. Airway patent. Nares patent, no nasal septal hematoma, TM's intact. NECK: Full range of motion. Supple. Trachea midline. Bilateral anterior cervical adenopathy. LUNGS: Clear to auscultation bilaterally, no wheezes, rales, or rhonchi. No respiratory distress. HEART: Regular rate and rhythm. No murmur ABDOMEN: Soft, non-tender. Non-distended. Bowel sounds present in all 4 quadrants. GENITOURINARY: Deferred EXTREMITIES: Moves all 4 extremities spontaneously. No edema, normal radial and dorsalis pedis pulses bilaterally. No cyanosis. BACK: no cervical, thoracic, lumbar midline tenderness. No saddle anesthesia, normal distal neurovascular exam. Moves all extremities in full range of motion. NEUROLOGICAL: Alert and oriented x3. Normal speech. Cranial nerves II through XII grossly intact. PSYCH: Normal affect, normal mood. SKIN: Warm, dry, normal turgor. No rashes or lesions noted. Course - Re-evaluation Re-evalutation: Patient has tonsillitis and anterior cervical adenopathy but clear airway and no evidence of abscess. She is also not tachycardic, she is smiling and well- appearing, she states she feels much better after receiving Toradol and dexamethasone in triage, she is able to tolerate p.o. She has no abdominal tenderness. CBC, chemistry, strep unremarkable, positive mononucleosis. This does fit patient's clinical picture. ESR and CRP reviewed and CRP is slightly elevated. I discussed with patient at length her work-up, recommendations, precautions, follow-up, and return precautions. Provided with work-release. Patient and family state understanding and agreement. Stable at time of discharge. - Vital Signs Vital signs: Temp Pulse Resp BP Pulse Ox 97.5 F 86 18 113/81 96 02/05/19 21:58 02/05/19 21:58 02/05/19 21:58 02/05/19 21:58 02/05/19 21:58 - Laboratory Result Diagrams: 02/05/19 16:10 02/05/19 16:10 Laboratory results interpreted by me: 02/05/19 02/05/19 02/05/19 16:10 16:10 16:10 WBC 11.7 H C-Reactive Protein 43.3 H Monotest POSITIVE H Discharge - Discharge Clinical Impression: Anterior cervical adenopathy Mononucleosis Qualifiers: Infectious mononucleosis etiology: unspecified organism Infectious mononucleosis complication: without complication Qualified Code(s): B27.90 - Infectious mononucleosis, unspecified without complication Pharyngitis Qualifiers: Pharyngitis/tonsillitis etiology: infectious mononucleosis Qualified Code(s): B27.90 - Infectious mononucleosis, unspecified without complication Condition: Stable Disposition: HOME, SELF-CARE Additional Instructions: Your work-up shows that you have mononucleosis "mono". This is a viral infection that takes time to resolve. He has been treated with Decadron to help reduce her symptoms, however you will need to rest, stay hydrated, you can take Tylenol and ibuprofen every 6 hours for pain/chills (do not take more than 600 mg of ibuprofen and 1000 mg of Tylenol each time). Follow-up with primary care. Return for any concerning symptoms including severe sudden abdominal pain, worsening swelling in your throat, severe headache or neck stiffness, confusion, or any other concerning or worsening symptoms. Forms: Return to Work
[2019-02-05 21:59] VITALS: BP 113/81
== END 2019-02-05 21:59 | disposition home or self-care (01) ==
LOC: ER 15:23
DX: B27.90 Infectious mononucleosis, unspecified without complication (principal); R59.0 Localized enlarged lymph nodes; R06.02 Shortness of breath; J02.9 Acute pharyngitis, unspecified; R09.81 Nasal congestion; R13.10 Dysphagia, unspecified; Z79.899 Other long term (current) drug therapy
CPT/HCPCS: 36415; 87880; 84703; 85025; 85652; 86140; 86308; 80053; J1885; J1100

== ENCOUNTER 2019-04-09 08:52 | Emergency (ER) | payer SELFPAY ==
[2019-04-09 10:16] LABS: HEMATOCRIT 39.7 % (36.0-47.0); HEMOGLOBIN 13.4 g/dL (12.0-15.5); MEAN CORPUSCULAR HEMOGLOBIN 29.6 pg (27.0-33.4); MEAN CORPUSCULAR HGB CONC 33.7 g/dL (32.0-36.0); MEAN CORPUSCULAR VOLUME 88 fl (80-97); PLATELET COUNT 215 10^3/uL (150-450); RED BLOOD COUNT 4.52 10^6/uL (3.72-5.28); RED CELL DISTRIBUTION WIDTH 13.7 % (11.5-14.0)
[2019-04-09 10:19] LABS: ALKALINE PHOSPHATASE 79 U/L (38-126); ANION GAP 9 (5-19); ASPARTATE AMINO TRANSFERASE 40 U/L (14-36); BILIRUBIN,DIRECT 0.2 mg/dL (0.0-0.4); BILIRUBIN,TOTAL 0.4 mg/dL (0.2-1.3); BLOOD UREA NITROGEN 14 mg/dL (7-20); CALCIUM 9.4 mg/dL (8.4-10.2); CARBON DIOXIDE 27 mmol/L (22-30); CHLORIDE 105 mmol/L (98-107); GLUCOSE 83 mg/dL (75-110); POTASSIUM 3.9 mmol/L (3.6-5.0); TOTAL PROTEIN 6.8 g/dL (6.3-8.2)
[2019-04-09] MEDS ORDERED: ONDANSETRON 4 MG TAB.RAPDIS PO ONE (10:20)
--- NOTE | 2019-04-09 10:22 | ER Document Report ---
ED Medical Screen (RME) - General Chief Complaint: Abdominal Pain Stated Complaint: ABDOMINAL PAIN,NAUSEA,VOMITING Time Seen by Provider: 04/09/19 10:16 Mode of Arrival: Ambulatory Information source: Patient Notes: Patient presents with lower abdominal pain for the past 2 weeks. Patient states she has had vomiting and diarrhea each day over the past 2 weeks. Patient reports fever of 101 yesterday. Patient does report some irregular vaginal bleeding which is atypical for her as she does not typically have a menstrual cycle due to her control. Patient also reports having difficulty voiding several days ago in which she thought she may have had a UTI. I have greeted and performed a rapid initial assessment of this patient. A comprehensive ED assessment and evaluation of the patient, analysis of test results and completion of the medical decision making process will be conducted by additional ED providers. TRAVEL OUTSIDE OF THE [place] IN LAST 30 DAYS: No - Related Data Allergies/Adverse Reactions: No Known Allergies Allergy (Verified 02/05/19 15:33) Past Medical History Pulmonary Medical History: Reports: Hx Bronchitis, Hx Pneumonia Renal/ Medical History: Denies: Hx Peritoneal Dialysis Past Surgical History: Reports: Hx Orthopedic Surgery - acl reconstruction - Immunizations Immunizations up to date: Yes Hx Diphtheria, Pertussis, Tetanus Vaccination: Yes Physical Exam - Vital signs Vitals: Temp Pulse Resp BP Pulse Ox 97.9 F 72 22 H 120/68 99 04/09/19 09:21 04/09/19 09:21 04/09/19 09:21 04/09/19 09:21 12 09:21 - Abdominal Inspection: Obese Tenderness: Tender - Lower pelvic Course - Vital Signs Vital signs: Temp Pulse Resp BP Pulse Ox 97.9 F 72 22 H 120/68 99 04/09/19 09:21 04/09/19 09:21 04/09/19 09:21 04/09/19 09:21 04/09/19 09:21 - Laboratory Result Diagrams: 04/09/19 09:30 04/09/19 09:30
[2019-04-09 10:23] LABS: APPEARANCE,URINE CLEAR; BILIRUBIN,URINE NEGATIVE (NEGATIVE); COLOR,URINE YELLOW; GLUCOSE, URINE NEGATIVE (NEGATIVE); KETONES,URINE NEGATIVE (NEGATIVE); LEUKOCYTE ESTERASE,URINE LARGE (NEGATIVE); NITRITE,URINE NEGATIVE (NEGATIVE); PROTEIN,URINE NEGATIVE (NEGATIVE); URINE SPECIFIC GRAVITY 1.018; UROBILINOGEN,URINE NEGATIVE mg/dL (<2.0)
[2019-04-09] MEDS ORDERED: CEFTRIAXONE 1 GM/D5W RTU 1 GM/50 ML RTUPB IV ONE (13:07)
[2019-04-09 13:12] VITALS: BP 117/69
--- NOTE | 2019-04-09 13:21 | ER Document Report ---
ED GI/ - General Chief Complaint: Abdominal Pain Stated Complaint: ABDOMINAL PAIN,NAUSEA,VOMITING Time Seen by Provider: 04/09/19 10:16 Mode of Arrival: Ambulatory Information source: Patient Notes: Otherwise healthy 24-year-old female presenting to the emergency department with complaints of low abdominal pain over the last 2 weeks. Patient also reports intermittent vomiting and diarrhea. She states she had only had vomiting and diarrhea may be 1-2 times per day. Yesterday she had fever of 101. She does report some dysuria and difficulty voiding. Denies any abnormal discharge. TRAVEL OUTSIDE OF THE [place] IN LAST 30 DAYS: No - Related Data Allergies/Adverse Reactions: No Known Allergies Allergy (Verified 02/05/19 15:33) Past Medical History - General Information source: Patient - Social History Smoking Status: Current Every Day Smoker Frequency of alcohol use: None Drug Abuse: None Family History: Reviewed & Not Pertinent Patient has suicidal ideation: No Patient has homicidal ideation: No Pulmonary Medical History: Reports: Hx Bronchitis, Hx Pneumonia Renal/ Medical History: Denies: Hx Peritoneal Dialysis Past Surgical History: Reports: Hx Orthopedic Surgery - acl reconstruction - Immunizations Immunizations up to date: Yes Hx Diphtheria, Pertussis, Tetanus Vaccination: Yes Review of Systems - Review of Systems Constitutional: Fever EENT: No symptoms reported Cardiovascular: No symptoms reported Respiratory: No symptoms reported Gastrointestinal: Abdominal pain, Diarrhea, Nausea, Vomiting Genitourinary: Burning, Urgency Female Genitourinary: No symptoms reported Musculoskeletal: No symptoms reported Skin: No symptoms reported Hematologic/Lymphatic: No symptoms reported Neurological/Psychological: No symptoms reported Physical Exam - Vital signs Vitals: Temp Pulse Resp BP Pulse Ox 97.9 F 72 22 H 120/68 99 04/09/19 09:21 04/09/19 09:21 04/09/19 09:21 04/09/19 09:21 04/09/19 09:21 - Notes Notes: PHYSICAL EXAMINATION: GENERAL: Well-appearing, well-nourished and in no acute distress. HEAD: Atraumatic, normocephalic. EYES: Pupils equal round and reactive to light, extraocular movements intact, conjunctiva are normal. ENT: Nares patent, oropharynx clear without exudates. Moist mucous membranes. NECK: Normal range of motion, supple without lymphadenopathy LUNGS: Breath sounds clear to auscultation bilaterally and equal. No wheezes rales or rhonchi. HEART: Regular rate and rhythm without murmurs ABDOMEN: Soft, nondistended abdomen. No guarding, no rebound. No masses appreciated. Mild tenderness to the mid low abdomen. Female : No CVA tenderness Musculoskeletal: Normal range of motion, no pitting or edema. No cyanosis. NEUROLOGICAL: Cranial nerves grossly intact. Normal speech, normal gait. Normal sensory, motor exams PSYCH: Normal mood, normal affect. SKIN: Warm, Dry, normal turgor, no rashes or lesions noted. Course - Re-evaluation Re-evalutation: Laboratory 04/09/19 04/09/19 04/09/19 09:30 09:30 09:30 WBC 9.0 RBC 4.52 Hgb 13.4 Hct 39.7 MCV 88 MCH 29.6 MCHC 33.7 RDW 13.7 Plt Count 215 Lymph % (Auto) Not Reportable [place] % (Auto) Not Reportable Eos % (Auto) Not Reportable Baso % (Auto) Not Reportable Absolute Neuts (auto) Not Reportable Absolute Lymphs (auto) Not Reportable Absolute Monos (auto) Not Reportable Absolute Eos (auto) Not Reportable Absolute Basos (auto) Not Reportable Total Counted Cancelled Seg Neutrophils % Not Reportable Seg Neuts % (Manual) Cancelled Band Neutrophils % Cancelled Lymphocytes % (Manual) Cancelled Atypical Lymphs % Cancelled Monocytes % (Manual) Cancelled Eosinophils % (Manual) Cancelled Basophils % (Manual) Cancelled Metamyelocytes % Cancelled Myelocytes % Cancelled Promyelocytes % Cancelled Immature Leukocytes % Cancelled Abs Neuts (Manual) Cancelled Abs Lymphs (Manual) Cancelled Abs Monocytes (Manual) Cancelled Absolute Eos (Manual) Cancelled Abs Basophils (Manual) Cancelled Nucleated RBCs Cancelled Differential Comment Cancelled Hypersegmented Neuts Cancelled Smudge Cells Cancelled Toxic Granulation Cancelled Toxic Vacuolation Cancelled Dohle Bodies Cancelled Dao Rods Cancelled WBC Morphology Comment Cancelled Clumped Platelets Cancelled Large Platelets Cancelled Giant Platelets Cancelled Platelet Comment Cancelled Polychromasia Cancelled Hypochromasia Cancelled Poikilocytosis Cancelled Basophilic Stippling Cancelled Anisocytosis Cancelled Microcytosis Cancelled Macrocytosis Cancelled Spherocytes Cancelled Pappenheimer Bodies Cancelled Sickle Cells Cancelled Target Cells Cancelled Tear Drop Cells Cancelled Ovalocytes Cancelled Stomatocytes Cancelled Helmet Cells Cancelled [place] Bodies Cancelled Theodora Cells Cancelled Acanthocytes (Spur) Cancelled Rouleaux Cancelled Schistocytes Cancelled RBC Morph Comment Cancelled Sodium 140.7 Potassium 3.9 Chloride 105 Carbon Dioxide 27 Anion Gap 9 BUN 14 Creatinine 0.74 Est GFR ( Amer) > 60 Est GFR (MDRD) Non-Af > 60 Glucose 83 Calcium 9.4 Total Bilirubin 0.4 Direct Bilirubin 0.2 Neonat Total Bilirubin Not Reportable Neonat Direct Bilirubin Not Reportable Neonat Indirect Bili Not Reportable AST 40 H ALT 19 Alkaline Phosphatase 79 Total Protein 6.8 Albumin 4.0 Lipase 109.6 Urine Color YELLOW Urine Appearance CLEAR Urine pH 5.0 Ur Specific [place] 1.018 Urine Protein NEGATIVE Urine Glucose (UA) NEGATIVE Urine Ketones NEGATIVE Urine Blood MODERATE H Urine Nitrite NEGATIVE Urine Bilirubin NEGATIVE Urine Urobilinogen NEGATIVE Ur Leukocyte Esterase LARGE H Urine WBC (Auto) 36 Urine RBC (Auto) 7 Urine Bacteria (Auto) TRACE Squamous Epi Cells Auto 4 Urine Mucus (Auto) RARE Urine Ascorbic Acid NEGATIVE Urine HCG, Qual NEGATIVE Patient appears well, nontoxic, urinalysis consistent with urinary tract infection. Given patient had a fever of 101 yesterday we will start her with a dose of Rocephin here in the emergency department she will then be discharged home with antibiotics and antiemetics. Patient is agreeable to this plan. Discussed ED return precautions. - Vital Signs Vital signs: Temp Pulse Resp BP Pulse Ox 97.8 F 55 L 16 117/69 98 04/09/19 13:11 04/09/19 13:11 04/09/19 13:11 04/09/19 13:11 04/09/19 13:11 - Laboratory Result Diagrams: 04/09/19 09:30 04/09/19 09:30 Laboratory results interpreted by me: 04/09/19 04/09/19 09:30 09:30 AST 40 H Urine Blood MODERATE H Ur Leukocyte Esterase LARGE H Discharge - Discharge Clinical Impression: Nausea vomiting and diarrhea Urinary tract infection Qualifiers: Urinary tract infection type: site unspecified Hematuria presence: without hematuria Qualified Code(s): N39.0 - Urinary tract infection, site not specified Condition: Stable Disposition: HOME, SELF-CARE Additional Instructions: Your urine shows findings consistent with a urinary tract infection. Please take all the antibiotics as directed even if your symptoms have improved. Please follow-up with your primary care physician as needed. Return to emergency room if you develop fever >101F, persistent vomiting, become lethargic, have severe pain in your sides, or any other symptoms that are concerning to you. Prescriptions: Cephalexin [Keflex] 500 mg PO BID #14 capsule Promethazine HCl [Phenergan 25 mg Tablet] 1 - 2 tab PO Q6H PRN #15 tablet PRN Reason: Forms: Return to Work, Special Work Note
== END 2019-04-09 13:52 | disposition home or self-care (01) ==
LOC: ER 08:52
DX: N39.0 Urinary tract infection, site not specified (principal); R10.30 Lower abdominal pain, unspecified; R11.2 Nausea with vomiting, unspecified; R19.7 Diarrhea, unspecified; R50.9 Fever, unspecified; R30.0 Dysuria; R39.15 Urgency of urination; F17.200 Nicotine dependence, unspecified, uncomplicated
CPT/HCPCS: 99284; 96365; 36415; 83690; 85025; 81025; 80053; 81001; S0119; J0696

== ENCOUNTER 2019-07-12 11:20 | Emergency (ER) | payer BC ==
--- NOTE | 2019-07-12 12:41 | ER Document Report ---
HPI - HPI Time Seen by Provider: 07/12/19 12:34 Onset: Just prior to arrival Quality of pain: Achy Pain Level: 2 Associated Symptoms: Fever, Nausea Exacerbated by: Denies Relieved by: Denies Similar symptoms previously: No - CONSTITUTIONAL Constitutional: DENIES: Fever, Chills - EENT EENT: REPORTS: Sore Throat - REPRODUCTIVE Reproductive: DENIES: : Past Medical History - General Information source: Patient - Social History Smoking Status: Never Smoker Frequency of alcohol use: Occasional Drug Abuse: None Lives with: Alone Family History: Reviewed & Not Pertinent Patient has suicidal ideation: No Patient has homicidal ideation: No Pulmonary Medical History: Reports: Hx Bronchitis, Hx Pneumonia Renal/ Medical History: Denies: Hx Peritoneal Dialysis Past Surgical History: Reports: Hx Orthopedic Surgery - acl reconstruction - Immunizations Immunizations up to date: Yes Hx Diphtheria, Pertussis, Tetanus Vaccination: Yes Vertical Provider Document - CONSTITUTIONAL Agree With Documented VS: Yes Exam Limitations: No Limitations - INFECTION CONTROL TRAVEL OUTSIDE OF THE [place] IN LAST 30 DAYS: No - HEENT HEENT: Pharyngeal Tenderness, Pharyngeal Erythema Notes: No trismus no oral floor induration no difficulty swallowing patient does have pronounced inflammation to right tonsil no pointing abscess. No difficulty swallowing no difficulty breathing no difficulty taking nourishment. - NECK Neck: Lymphadenopathy-Right - RESPIRATORY Respiratory: Breath Sounds Normal - CARDIOVASCULAR Cardiovascular: Regular Rhythm - GI/ABDOMEN Gastrointestinal: Abdomen Soft - BACK Back: Normal Inspection - NEURO Level of Consciousness: Awake Course - Vital Signs Vital signs: Temp Pulse Resp BP Pulse Ox 98.4 F 89 16 124/69 98 07/12/19 11:23 07/12/19 11:23 07/12/19 11:23 07/12/19 11:23 07/12/19 11:23 Discharge - Discharge Clinical Impression: Tonsillitis Condition: Good Disposition: HOME, SELF-CARE Instructions: Penicillin V K ([facility]), Corticosteroid Medication ([facility]), Use of [id number] Ibuprofen ([facility]), Sore Throat ([facility]), Tonsillitis ([facility]) Prescriptions: Prednisone [Deltasone 20 mg Tablet] 3 tab PO DAILY 5 Days #15 tablet Ibuprofen [Motrin 600 Mg Tablet] 600 mg PO TID #15 tablet Penicillin V Potassium [Penicillin Vk 500 mg Tablet] 500 mg PO BID #20 tablet Promethazine HCl [Phenergan 25 mg Tablet] 1 - 2 tab PO Q6H PRN #15 tablet PRN Reason: Forms: Return to Work
[2019-07-12 12:51] VITALS: BP 126/72
== END 2019-07-12 12:52 | disposition home or self-care (01) ==
LOC: ER 11:20
DX: J03.90 Acute tonsillitis, unspecified (principal)
CPT/HCPCS: 99282

== ENCOUNTER 2020-05-07 15:44 | Emergency (ER) | payer BC, OTHER ==
[2020-05-07] MEDS ORDERED: ACETAMINOPHEN 325 MG TABLET PO ONE (17:32)
--- NOTE | 2020-05-07 17:34 | ER Document Report ---
ED Medical Screen (RME) - General Chief Complaint: Sore Throat Stated Complaint: SORE THROAT Time Seen by Provider: 05/07/20 17:29 Mode of Arrival: Ambulatory Information source: Patient Notes: HPI; 25-year-old female presents to the emergency room complaining of a sore throat for the past 2 days. Fevers of 100. Has been taking Tylenol with minimal relief. Last dose was last night. Also complaining of general body aches. Denies any ill contacts. No COVID-19 exposure. States is able to swallow but is painful. PE: Alert and oriented x3. Lungs: Clear to auscultation without rales, rhonchi, wheezes. Heart: Tachycardic without murmurs, rubs, gallops. Positive for posterior pharyngeal erythema with exudate. Positive for anterior cervical lymphadenopathy. Patient is able to handle her own secretions and talking in full sentences. I have greeted and performed a rapid initial assessment of this patient. A comprehensive ED assessment and evaluation of the patient, analysis of test results and completion of the medical decision making process will be conducted by additional ED providers. I have specifically instructed the patient or family members with the patient to immediately return to any nursing staff should anything change in the patient's condition or with their chief complaint. TRAVEL OUTSIDE OF THE [place] IN LAST 30 DAYS: No - Related Data Allergies/Adverse Reactions: adhesive Allergy (Verified 05/07/20 17:28) Past Medical History - Social History Frequency of alcohol use: Occasional Pulmonary Medical History: Reports: Hx Bronchitis, Hx Pneumonia Renal/ Medical History: Denies: Hx Peritoneal Dialysis Past Surgical History: Reports: Hx Orthopedic Surgery - acl reconstruction - Immunizations Immunizations up to date: Yes Hx Diphtheria, Pertussis, Tetanus Vaccination: Yes Physical Exam - Vital signs Vitals: Temp Pulse Resp BP Pulse Ox 99.8 F 105 H 20 112/74 98 05/07/20 15:49 05/07/20 15:49 05/07/20 15:49 05/07/20 15:49 05/07/20 15:49 Course - Vital Signs Vital signs: Temp Pulse Resp BP Pulse Ox 99.8 F 105 H 20 112/74 98 05/07/20 15:49 05/07/20 15:49 05/07/20 15:49 05/07/20 15:49 05/07/20 15:49
[2020-05-07] MEDS ORDERED: DEXAMETHASONE SOD PHOS INJ 10 MG/1 ML VIAL IM ONE (18:38)
--- NOTE | 2020-05-07 18:40 | ER Document Report ---
ED ENT - General Chief Complaint: Sore Throat Stated Complaint: SORE THROAT Time Seen by Provider: 05/07/20 17:29 Mode of Arrival: Ambulatory TRAVEL OUTSIDE OF THE [place] IN LAST 30 DAYS: No - HPI Patient complains to provider of: Throat problem Notes: Patient here with complaints of sore throat. The patient states that she had a sore throat for the last few days. She has had a mild cough with some occasional headaches. No fever. She denies any nausea, vomiting, diarrhea. She denies any significant chest pain or shortness of breath. No specific Covid exposure. States that the throat pain is constant, moderate, worse with swallowing, nothing makes it better. She denies any rashes. She denies any severe headache. No blurred or lost vision. No numbness, tingling, weakness. No abdominal pain. No other complaints at this moment. - Related Data Allergies/Adverse Reactions: adhesive Allergy (Verified 05/07/20 17:28) Past Medical History - General Information source: Patient - Social History Smoking Status: Never Smoker Frequency of alcohol use: Occasional Drug Abuse: None Family History: Reviewed & Not Pertinent Patient has homicidal ideation: No Pulmonary Medical History: Reports: Hx Bronchitis, Hx Pneumonia Renal/ Medical History: Denies: Hx Peritoneal Dialysis Past Surgical History: Reports: Hx Orthopedic Surgery - acl reconstruction - Immunizations Immunizations up to date: Yes Hx Diphtheria, Pertussis, Tetanus Vaccination: Yes Review of Systems - Review of Systems -: Yes All other systems reviewed and negative Physical Exam - Vital signs Vitals: Temp Pulse Resp BP Pulse Ox 99.8 F 105 H 20 112/74 98 05/07/20 15:49 05/07/20 15:49 05/07/20 15:49 05/07/20 15:49 05/07/20 15:49 - Notes Notes: GENERAL: alert, cooperative, nontoxic, no distress. HEAD: normocephalic, atraumatic EYES: conjunctiva pink without discharge, no external redness or swelling. EARS: no external swelling, no external redness, no mastoid redness, swelling, tenderness. Ear canals are clear without swelling or drainage. TMs pearly nevarez, no redness, no bulging, normal landmarks, no perforation. NOSE: atraumatic, no external swelling. clear rhinorrhea noted. MOUTH/THROAT: mucous membranes moist and pink, posterior pharynx with mild erythema, bilateral tonsillar swelling with a few areas of exudate. Uvula is midline. No peritonsillar abscess. No trismus or drooling. Voice is normal, no stridor. NECK: soft, supple, full range of motion, no meningismus. Anterior cervical lymphadenopathy bilaterally. CHEST: no distress, lungs clear and equal throughout. No wheezing, rales, rhonchi. CARDIAC: regular rate and rhythm, no murmur EXTREMITIES: full range of motion of all extremities. No redness, no swelling. NEURO: alert and oriented A&O3, no focal deficits, full range of motion of all extremities. PYSCH: appropriate mood, affect. Patient is cooperative. SKIN: pink, warm, dry, no rash. Course - Re-evaluation Re-evalutation: 05/07/20 19:55 Patient resting comfortably at this time. Gone over results with the patient. Questions been answered. Will discharge home. Patient with complaints of sore throat for the last few days. She had some mild cough and some intermittent headaches. No known fever. No difficulty breathing or swallowing but pain with swallowing. On exam she is has bilateral tonsillar erythema with some mild exudate. No sign of peritonsillar abscess or epiglottitis. She has an anterior cervical lymphadenopathy. Rapid strep is negative. Covid swab is pending, mono screen is positive. Patient was given a dose of Decadron here in the emergency department. Patient will be discharged home with prescription for NSAIDs. Instructions to drink plenty of fluids. Follow-up for symptoms that do not improve in the next 3 to 5 days, sooner for worsening pain, high fever, persistent vomiting, significant trouble breathing or swallowing, or any further concerns. Patient was also cautioned regarding avoiding contact sports. The patient's emergency department workup and current diagnosis were explained to the patient and or family. Follow-up instructions were provided. Medications if prescribed were discussed. Instructions for when to return to the emergency department including specific worrisome symptoms were discussed with the patient and/or family. - Vital Signs Vital signs: Temp Pulse Resp BP Pulse Ox 99.8 F 105 H 20 112/74 98 05/07/20 15:49 05/07/20 15:49 05/07/20 15:49 05/07/20 15:49 05/07/20 15:49 - Laboratory Results Laboratory Results Interpreted: 05/07/20 18:40 Monotest POSITIVE H Critical Laboratory Results Reviewed: No Critical Results - Radiology Results Critical Radiology Results Reviewed: No Critical Results Discharge - Discharge Clinical Impression: Mononucleosis Qualifiers: Infectious mononucleosis etiology: other organism Infectious mononucleosis complication: without complication Qualified Code(s): B27.80 - Other infectious mononucleosis without complication Condition: Stable Disposition: HOME, SELF-CARE Instructions: Mononucleosis (OM) Additional Instructions: Take medication as prescribed. You may also take Tylenol as needed for pain. Drink plenty of fluids. Avoid contact sports. Follow-up if not improving the next 3 to 5 days, sooner for worsening pain, persistent vomiting, significant trouble breathing or swallowing or any further concerns. Prescriptions: Diclofenac Sodium [Voltaren 50 Mg Tablet.] 50 mg PO BID #20 tablet. Referrals: [facility] [Provider Group] - Follow up as needed
[2020-05-07 20:00] VITALS: BP 104/69
== END 2020-05-07 20:37 | disposition home or self-care (01) ==
LOC: ER 15:44
DX: B27.90 Infectious mononucleosis, unspecified without complication (principal); J02.9 Acute pharyngitis, unspecified; R05 Cough; R51.9 Headache, unspecified; Z91.048 Other nonmedicinal substance allergy status; Z20.822 Contact with and (suspected) exposure to COVID-19
CPT/HCPCS: 99284; 96372; 36415; 87070; 87880; 86308; U0003; J1100; C9803; 87635

== ENCOUNTER 2020-05-16 23:58 | Emergency (ER) | payer BC, OTHER ==
[2020-05-17] MEDS ORDERED: FAMOTIDINE INJ/PF 20 MG/2 ML SDV IV ONE ×2 (00:06→00:11)
[2020-05-17] MEDS ORDERED: DIPHENHYDRAMINE HCL 50 MG/ML VIAL ONE (00:06)
[2020-05-17] MEDS ORDERED: METHYLPREDNISOLONE INJ 125 MG/2 ML SDV ONE (00:06)
[2020-05-17] MEDS ORDERED: DIPHENHYDRAMINE HCL 50 MG/ML VIAL IV ONE (00:10)
[2020-05-17] MEDS ORDERED: METHYLPREDNISOLONE INJ 125 MG/2 ML SDV IV ONE (00:11)
--- NOTE | 2020-05-17 00:12 | ER Document Report ---
ED General - General Stated Complaint: POSSIBLE ALLERGIC REACTION Time Seen by Provider: 05/17/20 00:09 Primary Care Provider: MINDI AMOS MD [HONORARY] - Follow up as needed TRAVEL OUTSIDE OF THE [place] IN LAST 30 DAYS: No - HPI Context: Chief Complaint: [acute rash [This is a 25-year-old female with a history of recently diagnosed mononucleosis presenting to the emergency department complaining of a acute diffuse rash involving her trunk, abdomen, back, buttocks and lower extremities. Patient denies taking any antibiotic medication or taking any new medications. Patient was given a prescription for Voltaren tablets which she says she did not fill. Patient denies fever, chills, photophobia, neck pain. Patient denies exposure to new chemicals, soaps, detergents. ] History obtained from [patient] Symptoms began:[1 hour prior to arrival per patient] Onset: [Sudden] Timing: [Sudden] Quality: [Itchy and painful] Intensity: [Severe] Location: [Generalized] Radiation: [Denies] [The pain does not migrate to a new location.] Aggravating factors: [none] Relieving factors: [none] [Denies] SOB [Denies] nausea [Denies] vomiting [Denies] sweats [Denies] fever [Denies] cough [Denies] calf or leg swelling or pain - Related Data Allergies/Adverse Reactions: adhesive Allergy (Verified 05/17/20 00:09) Past Medical History - General Information source: Patient - Social History Smoking Status: Never Smoker Family History: Reviewed & Not Pertinent - Medical History Medical History: Other - Patient was diagnosed with mononucleosis on 05/07/2020 Pulmonary Medical History: Reports: Hx Bronchitis, Hx Pneumonia Renal/ Medical History: Denies: Hx Peritoneal Dialysis Past Surgical History: Reports: Hx Orthopedic Surgery - acl reconstruction - Immunizations Immunizations up to date: Yes Hx Diphtheria, Pertussis, Tetanus Vaccination: Yes Review of Systems - Review of Systems Notes: Review of systems as below unless otherwise stated in HPI. CONSTITUTIONAL [No] fever, [No] chills. EYES [No] eye pain. ENT [No] URI symptoms, [No] sore throat, [No] ear pain. CARDIOVASCULAR [No] chest pain, [No] palpitations, [No] edema. RESPIRATORY [No] Cough, [No] SOB, [No] wheezing. GASTROINTESTINAL [No] abdominal pain, [No] nausea, [No] Diarrhea, [No] Vomiting, [No] constipation, [No] melena, [No] rectal bleeding. GENITOURINARY [No] dysuria, [No] urinary frequency, [No] hematuria, [No] urinary urgency, [No] vaginal discharge, [No] vaginal bleeding. MUSCULOSKELETAL [No] Back pain. SKIN Positive rash. NEUROLOGIC [No] Headache, [No] recent seizures, [No] paralysis,[No] parathesias. ENDOCRINE [No] polyuria. HEMO/LYMPATIC [No] easy brusing PSYCHIATRIC [No] depression. Physical Exam - Vital signs Vitals: Resp BP Pulse Ox 21 H 142/87 H 98 05/17/20 00:00 05/17/20 00:00 05/17/20 00:00 - Notes Notes: CONSTITUTIONAL [Vital signs reviewed, Patient appears comfortable, Alert and oriented X 3, Normal stature.] HEAD [Atraumatic, Normocephalic.] EYES [Eyes are normal to inspection, No discharge from eyes, Extraocular muscles intact, Sclera are normal, Conjunctiva are normal.] ENT [External ears normal to inspection, Nose examination normal, Mouth normal to inspection.] NECK [Normal ROM, No jugular venous distention, No meningeal signs, ] RESPIRATORY CHEST [Chest is nontender, Breath sounds normal, No respiratory distress.] CARDIOVASCULAR [RRR, No murmurs, Normal S1 S2, No rub, No gallop.] ABDOMEN [Abdomen is nontender, No pulsatile masses, No other masses, Bowel sounds normal, No distension, No peritoneal signs, No hernias.] BACK [There is no CVA Tenderness, There is no tenderness to palpation, Normal inspection.] UPPER EXTREMITY [Inspection normal, No cyanosis, No clubbing, No edema, LOWER EXTREMITY [Inspection normal, No cyanosis, No clubbing, No edema, No calf tenderness, NEURO [No focal motor deficits, No focal sensory deficits, Speech normal.] SKIN Patient has areas of erythema at that appear maculopapular, erythematous and nonblanching on her back, buttocks, abdomen, bilateral lower extremities. LYMPHATIC [No adenopathy in neck.] PSYCHIATRIC [Normal affect. ] Course - Re-evaluation Re-evalutation: Differential diagnosis: Postinfectious vasculitis, atypical allergic reaction, blood dyscrasia, clotting disorder MDM: Given the patient's recent diagnosis of mononucleosis confirmed by testing on her last emergency department visit, lack of photophobia, lack of meningismus, lack of exposure to substances that could cause contact dermatitis and lack of ingestion of medications that might cause a drug reaction, I think that the patient's symptoms are most consistent with a postinfectious vasculitis related to her mononucleosis. Given that the patient complains of pain at the sites of rash along with pruritus, I decided to put her on a course of prednisone to help alleviate her symptoms as I believe this is a short-term acute process related to her mononucleosis. Results of ED MSE discussed with patient. All questions were answered prior to discharge. Emergency signs and symptoms, reasons to return to the emergency department discussed with patient. - Vital Signs Vital signs: Temp Pulse Resp BP Pulse Ox 98.4 F 78 18 114/58 L 96 05/17/20 07:00 05/17/20 07:00 05/17/20 07:00 05/17/20 07:00 05/17/20 07:00 - Laboratory Results Result Diagrams: 05/17/20 00:08 05/17/20 00:08 Laboratory Results Interpreted: 05/17/20 05/17/20 00:08 00:08 WBC 13.9 H RBC 5.30 H Hgb 16.1 H Absolute Neuts (auto) 8.7 H Carbon Dioxide 18 L Glucose 111 H Critical Laboratory Results Reviewed: No Critical Results Attending or Supervising Physician who Reviewed Labs: LYNETTE DEJESUS IV - Radiology Results Critical Radiology Results Reviewed: No Critical Results Attending or Supervising Physician who Reviewed Radiology: LYNETTE DEJESUS IV Discharge - Discharge Clinical Impression: Post-infectious vasculitis Condition: Stable Disposition: HOME, SELF-CARE Instructions: Vasculitis ([facility]) Additional Instructions: Return to the Emergency Department without delay if any worse. HOME CARE INSTRUCTIONS & INFORMATION: Thank you for choosing us for your medica l needs. We hope you're satisfied with the care you received. After you leave, you must properly care for your problem and, at the same time, observe its progress. Any condition can change. Some illnesses can change rapidly over hours or days. If your condition worsens, return to the Emergency Department or see your physician promptly. ABOUT YOUR X-RAYS AND EKG'S: If you had an EKG or X-rays taken, they have been read by the Emergency Physician. The X-rays and EKG's will also be read by a Radiologist or [facility] within 24 hours. If discrepancies are noted, you will be notified by telephone. Please be certain the ED has a correct telephone number & address where you can be reached. Also, realize that some fractures or abnormalities do not show up on initial X-rays. If your symptoms continue, see your physician. ABOUT YOUR LABORATORY TEST: If you had laboratory tests, the results have been reviewed by the Emergency Physician. Some test results (for example cultures) may not be available for several days. You will be contacted if any test result shows you need additional treatment. Please be certain the ED has a correct telephone number and address where you can be reached. ABOUT YOUR MEDICATIONS: You will receive instructions on how to take your medicine on the prescription label you receive. Additional information may be provided by the Pharmacy. If you have questions afterwards, call the ED for clarification or further instructions. Some prescribed medications may cause drowsiness. Do not perform tasks such as driving a car or operating machinery without consulting your Pharmacist. If you feel you need a refill of pain medication, your condition will need re-evaluation. Please do not call for a refill of any medication. ABOUT YOUR SIGNATURE: Signature of this document acknowledges to followin. Understanding that you received emergency treatment and that you may be released before al medical problems are known or treated. Please be certain the ED has a correct phone number & address where you can be reached. 2. Acknowledgement that you will arrange for follow-up care as recommended. 3. Authorization for the Emergency Physician to provide information to your follow-up Physician in order to maximize your care. AT ANY TIME, IF YOUR SYMPTOMS CHANGE SIGNIFICANTLY OR WORSEN OR YOU DEVELOP NEW SYMPTOMS, RETURN TO THE EMERGENCY DEPARTMENT IMMEDIATELY FOR RE-EVALUATION. OUR GOAL IS TO PROVIDE EXCELLENT MEDICAL CARE! WE HOPE THAT WE HAVE MET YOUR EXPECTATIONS DURING YOUR EMERGENCY DEPARTMENT VISIT AND THAT YOU FEEL YOU HAVE RECEIVED EXCELLENT CARE! As discussed, your rash appears to be a inflammation of small blood vessels which is called a vasculitis. Given that you were recently diagnosed with mononucleosis, your vasculitis is likely due to your mono infection. Prescriptions: Prednisone [Deltasone 20 mg Tablet] 3 tab PO DAILY 4 Days #12 tablet Referrals: MINDI AMOS MD [HONORARY] - Follow up as needed
[2020-05-17 00:31] LABS: ABSOLUTE BASOPHILS # (AUTO) 0.1 10^3/uL (0.0-0.2); ABSOLUTE EOSINOPHILS # (AUTO) 0.1 10^3/uL (0.0-0.6); ABSOLUTE LYMPHOCYTES (AUTO) 3.9 10^3/uL (0.5-4.7); ABSOLUTE MONOCYTES (AUTO) 1.1 10^3/uL (0.1-1.4); ABSOLUTE NEUT (AUTO) 8.7 10^3/uL (1.7-8.2); BASOPHILS % (AUTO) 0.8 % (0-2); EOSINOPHILS % (AUTO) 0.6 % (0-6); HEMATOCRIT 44.8 % (36.0-47.0); HEMOGLOBIN 16.1 g/dL (12.0-15.5); MEAN CORPUSCULAR HEMOGLOBIN 30.4 pg (27.0-33.4); MEAN CORPUSCULAR VOLUME 84 fl (80-97); MONOCYTES % (AUTO) 7.9 % (3-13); PLATELET COUNT 325 10^3/uL (150-450); RED CELL DISTRIBUTION WIDTH 13.1 % (11.5-14.0); SEGMENTED NEUTROPHILS % (AUTO) 62.7 % (42-78); TOTAL CELLS COUNTED % (AUTO) 100 %; WHITE BLOOD COUNT 13.9 10^3/uL (4.0-10.5)
[2020-05-17 00:33] LABS: INTERNATIONAL RATION (INR) 0.97
[2020-05-17 00:34] LABS: PARTIAL THROMBOPLASTIN TIME 32.8 SEC (23.5-35.8)
[2020-05-17 00:46] LABS: ALBUMIN 4.1 g/dL (3.5-5.0); ALKALINE PHOSPHATASE 87 U/L (38-126); ANION GAP 16 (5-19); ASPARTATE AMINO TRANSFERASE 30 U/L (14-36); BILIRUBIN,DIRECT 0.2 mg/dL (0.0-0.4); BILIRUBIN,TOTAL 0.5 mg/dL (0.2-1.3); BLOOD UREA NITROGEN 8 mg/dL (7-20); CALCIUM 10.1 mg/dL (8.4-10.2); CARBON DIOXIDE 18 mmol/L (22-30); CHLORIDE 104 mmol/L (98-107); GLUCOSE 111 mg/dL (75-110); POTASSIUM 4.2 mmol/L (3.6-5.0); TOTAL PROTEIN 6.8 g/dL (6.3-8.2)
[2020-05-17] MEDS ORDERED: NORMAL SALINE 1000 ML 1,000 ML IV ONE (02:15)
[2020-05-17 03:21] LABS: VENOUS BLOOD BASE EXCESS -3.4 mmol/L; VENOUS BLOOD HCO3 21.1 mmol/L (20-32); VENOUS BLOOD PCO2 36.5 mmHg (35-63); VENOUS BLOOD PH 7.38 (7.30-7.42)
[2020-05-17 07:16] VITALS: BP 114/58
== END 2020-05-17 07:00 | disposition home or self-care (01) ==
LOC: ER 23:58
DX: L95.8 Other vasculitis limited to the skin (principal); L29.9 Pruritus, unspecified
CPT/HCPCS: 99284; 96361; 96374; 96375; 36415; 87040; 83605; 85025; 85610; 85730; 80053; 82803; J1200; J2930; J7030; S0028